=== PATIENT | male | born 1950 | race Caucasian/White ===

== ENCOUNTER 2017-10-29 09:28 | Emergency (ER) | payer MEDICARE, OTHER ==
[2017-10-29] MEDS ORDERED: Lidocaine 1% w/Epinephrine 1:100K 20 ML VIAL ONE (09:56)
[2017-10-29] MEDS ORDERED: Oxymetazoline HCl 0.05% ( 15 ML ) ONE (09:56)
[2017-10-29 10:27] LABS: #Basophils 0.1 thou/uL (0.0-0.2); #Eosinphils 0.1 thou/uL (0.0-0.7); #Lymphocytes 1.4 thou/uL (1.20-3.40); #Neutrophils 5.2 thou/uL (1.40-6.50); %Eosinophils 1.2 % (0.0-10.0); %Lymphocytes 18.3 % (21.0-51.0); %Monocytes 12.3 % (0.0-10.0); %Neutrophils 67.1 % (42.0-75.0); Hemoglobin 14.4 g/dL (14.0-18.0); Mean Corpuscular HGB CONC 34.1 g/dL (32.0-36.0); Mean Corpuscular Hemoglobin 31.3 pg (27.0-31.0); Mean Corpuscular Volume 91.7 fl (80.0-94.0); Mean Platelet Volume 6.3 fL (7.4-10.4); Platelet Count 239 thou/uL (130-400); RBC Distribution Width 11.9 % (11.5-14.5); White Blood Cell (WBC) Count 7.7 thou/uL (4.8-10.8)
[2017-10-29 10:32] LABS: INR-International Normal Ratio 1.2; PTT 32.7 SEC (22.9-36.1); Prothrombin Time 14.9 SEC (12.0-14.7)
[2017-10-29 10:47] LABS: ALT (SGPT) 41 U/L (8-55); AST (SGOT) 36 U/L (5-34); Albumin 4.3 g/dL (3.4-4.8); Alkaline Phosphatase 105 U/L (40-150); Anion Gap 16 mmol/L (10-20); BUN (Urea Nitrogen) 16 mg/dL (8.4-25.7); Calc. Creatinine Clearance 0 mL/min (70-130); Calcium 9.2 mg/dL (7.8-10.44); Carbon Dioxide 22 mmol/L (23-31); Chloride 98 mmol/L (98-107); Estimated GFR-MDRD Greater than 90; Globulin 3.5 g/dL (2.4-3.5); Glucose 113 mg/dL (80-115); Potassium 4.1 mmol/L (3.5-5.1); Protein, Total 7.8 g/dL (5.8-8.1); Sodium 132 mmol/L (136-145)
== END 2017-10-29 12:18 | disposition home or self-care (01) ==
LOC: ERS 09:28
DX: R04.0 Epistaxis (principal); E78.5 Hyperlipidemia, unspecified; I10 Essential (primary) hypertension; Z87.891 Personal history of nicotine dependence
CPT/HCPCS: 30901; 36415; 80053; 85025; 85610; 85730; 93005; J2001

== ENCOUNTER 2017-11-12 10:26 | Day surgery (SDC) | payer MEDICARE, OTHER ==
[2017-11-11 12:18] VITALS: BMI 36.6
[2017-11-12] MEDS ORDERED: Oxymetazoline HCl 0.05% ( 15 ML ) ONE (11:02)
[2017-11-12] MEDS ORDERED: Fentanyl 100 MCG/2 ML VIAL ONE ×2 (11:36→13:06)
[2017-11-12] MEDS ORDERED: Lidocaine 1% w/Epinephrine 1:200K 30 ML VIAL ONE (11:41)
[2017-11-12] MEDS ORDERED: Sodium Chloride For Inhalation 0.9% 3 ML NEB ONE (13:11)
--- NOTE | 2017-11-12 15:14 | OP ---
PREOPERATIVE DIAGNOSES: Chronic sinusitis, right antrochoanal polyp. POSTOPERATIVE DIAGNOSES: Chronic sinusitis, right antrochoanal polyp. PROCEDURES PERFORMED: 1. Bilateral nasal endoscopy with maxillary antrostomy. 2. Bilateral nasal endoscopy with total ethmoidectomy. 3. Bilateral nasal endoscopy with sphenoidotomy. 4. Bilateral nasal endoscopy with frontal sinusotomy. 5. Right nasal endoscopy with removal of antrochoanal polyp. PROCEDURE IN DETAIL: After consent was obtained, the patient was identified, brought to the operatin g room, and placed on the operating room table in the supine position. Consent was obtained, notifyi ng the patient of the possibility of additional infections, bleeding, brain injury, and eye/orbital i njury. The patient was placed on the operating room table, and general endotracheal anesthesia and intravenous access was obtained. The patient was then positioned, prepped and draped for endoscopic sinus surgery. Nasal preparation included trimming nasal vestibular hairs and spraying in topical Af rin. We then placed Afrin topical solution on nasal pledgets and strategically located them intranas ally. The perinasal mucosa was injected with 1% lidocaine with 1:100,000 epinephrine in the submucop erichondrial plane of the septum, lateral nasal wall, and anterior to the uncinate. The patient was then prepped and draped in a sterile fashion and positioned for endoscopic sinus surgery. With the 0-degree endoscope, the patient underwent systematic nasal endoscopy. There were no suspici ous internasal masses or lesions identified. We then focused our attention to the osteomeatal comple x region under the middle turbinate. The paz bullosa was identified and entered with a sickle blade. The lateral aspect of the paz bullosa was meticulously resected while leaving the medial most aspect to form the new middle turbina te. Attention was made not to violate the mucosa. The straight biting punches and micro-debrider we re used to remove shrouds of mucosa and bony debris. The anterior face of the ethmoid bulla was entered and with the micro-debrider, dissection continued posteriorly to the ground lamella. The limits of dissection inc luded the insertion of the middle turbinate, medial orbital wall, and base of skull. We similarly id entified the frontal recess and removed shrouds of bone and debris in that region to obtain patency i nto the agger nasi region and frontal recess. We then entered the ground lamella and its anteroinfer ior aspect and proceeded posteriorly, opening the posterior ethmoid air-cell system. Again, the limi ts of dissection included the base of skull and medial orbital wall. The anterior face of the sphenoid was identified and entered in its extreme anteroinferior aspect. A sphenoid punch was then used to enlarge the sphenoidotomy and no injury to the optic nerve or corporate development intern al carotid artery occurred. The inferior turbinates were visualized under endoscopic visualization and outfractured with the elev ator. The inferolateral edge of the inferior turbinate was then cauterized along its length with the suction cautery without difficulty. The inferior turbinates were visualized with a 0-degree endoscope and outfractured with a [place] eleva tor. The inferior medial aspect was cauterized with the electrocautery. Hemostasis was obtained . After adequate airway was established, we turned our attention to the contralateral side and used a s imilar procedure. Again, a [place] elevator was used to outfracture inferior turbinates under endoscop ic visualization. With a suction cautery, the free inferior medial aspect was cauterized under direc t visualization along the length of the inferior turbinate. After local anesthesia was infiltrated into the submucoperichondrial plane, a standard [place] incisi on was made with a #15 blade down to the level of the septal cartilage. The caudal elevator was used to elevate the mucoperichondrium from the underlying cartilage. We then proceeded beyond the bony c artilaginous junction and elevated the bony periosteum as well. Great attention was paid to the spur to prevent rent formation in the septal flap. A transcartilaginous incision was then made, while pre serving an adequate dorsal and caudal cartilaginous strut for tip support. The deformed cartilage wa s removed and disarticulated from the bony cartilaginous junction and maxillary crest. This was plac ed in saline and would later be crushed and returned to the mucoperichondrial envelope. We then elev ated the contralateral periosteum from the bony cartilaginous region and removed the deformed portion s of the bone and bony spurs. The cartilage was then crushed and placed back into the mucoperichondr ial envelope and the mucosa was re-approximated with a quilting stitch composed of rapidly absorbent gut suture. The Nii incision was also closed with interrupted gut suture. At the completion of the case, Castaneda splints were placed and suture secured to the caudal septum. At this point, we then turned our attention to the contralateral side and proceeded with endoscopic s inus surgery. At the completion of the case, [place] keel splints were placed in the ethmoid cavities after the ethmoi dectomy. There were no complications. The patient tolerated the procedure well and was discharged t o the recovery room in stable condition prior to return to the [facility] complex care. Prescriptions for pain medication and antibiotics were provided. The patient received intramuscular Depo-Medrol during the case. The right maxillary sinus was addressed prior to maxillary antrostomy and a large intracranial polyp was transected at the ostia under endoscopic visualization and this was injected and removed intact, measuring approximately 4-5 inches. The patient was awakened, extubated, and taken to recovery room stable condition. The uncinate was then identified and the extent of the uncinate was appreciated by out-fracturing the uncinate with the ball-tip probe. We then used the sickle blade to disarticulate the uncinate from the lateral nasal wall. This was then removed with straight biting and upbiting punches with the rem aining shrouds of mucosa and bony septum removed with the micro-debrider. The natural os of the maxi llary sinus was then identified and enlarged with the maxillary punches and back biting forceps.
[2017-11-12] MEDS ORDERED: Glycopyrrolate 0.2 MG/ML 5 ML SYRINGE ONE (15:35)
[2017-11-12] MEDS ORDERED: Esmolol 100 MG/10 ML VIAL ONE (15:35)
[2017-11-12] MEDS ORDERED: Propofol 200 MG/20 ML VIAL ONE (15:35)
[2017-11-12] MEDS ORDERED: Ondansetron HCl/PF 4 MG/2 ML Vial ONE (15:35)
[2017-11-12] MEDS ORDERED: Lidocaine 1% PF 5 ML VIAL ONE (15:35)
== END 2017-11-12 16:05 | disposition home or self-care (01) ==
LOC: SDC 10:26
PROVIDERS: ATTEND Specialist
PROC: 099R8ZZ Drainage of Left Maxillary Sinus, Via Natural or Artificial Opening Endoscopic (ICD-10-PCS; principal; 2017-11-12)
PROC: 099Q8ZZ Drainage of Right Maxillary Sinus, Via Natural or Artificial Opening Endoscopic (ICD-10-PCS; 2017-11-12)
PROC: 09TV8ZZ Resection of Left Ethmoid Sinus, Via Natural or Artificial Opening Endoscopic (ICD-10-PCS; 2017-11-12)
PROC: 09TU8ZZ Resection of Right Ethmoid Sinus, Via Natural or Artificial Opening Endoscopic (ICD-10-PCS; 2017-11-12)
PROC: 09BT8ZZ Excision of Left Frontal Sinus, Via Natural or Artificial Opening Endoscopic (ICD-10-PCS; 2017-11-12)
PROC: 09BS8ZZ Excision of Right Frontal Sinus, Via Natural or Artificial Opening Endoscopic (ICD-10-PCS; 2017-11-12)
PROC: 09CX8ZZ Extirpation of Matter from Left Sphenoid Sinus, Via Natural or Artificial Opening Endoscopic (ICD-10-PCS; 2017-11-12)
PROC: 09CW8ZZ Extirpation of Matter from Right Sphenoid Sinus, Via Natural or Artificial Opening Endoscopic (ICD-10-PCS; 2017-11-12)
PROC: 09BQ8ZX Excision of Right Maxillary Sinus, Via Natural or Artificial Opening Endoscopic, Diagnostic (ICD-10-PCS; 2017-11-12)
DX: J30.89 Other allergic rhinitis (principal); I10 Essential (primary) hypertension; K21.9 Gastro-esophageal reflux disease without esophagitis; Z79.2 Long term (current) use of antibiotics; Z79.899 Other long term (current) drug therapy; Z98.890 Other specified postprocedural states; Z87.891 Personal history of nicotine dependence
CPT/HCPCS: 88304; 93005; 93010; 96374; J2001; J2405; J2704; J3010; J7620

== ENCOUNTER 2023-07-13 12:09 | Day surgery (SDC) | payer MEDICARE, OTHER ==
[2023-07-10 11:05] VITALS: BMI 35.2
[2023-07-13 13:23] LABS: #Basophils 0.1 thou/uL (0.0-0.2); #Eosinphils 0.2 thou/uL (0.0-0.7); #Neutrophils 5.8 thou/uL (1.40-6.50); %Basophils 0.7 % (0.0-1.0); %Eosinophils 2.6 % (0.0-10.0); %Lymphocytes 15.4 % (21.0-51.0); %Monocytes 11.5 % (0.0-10.0); %Neutrophils 69.6 % (42.0-75.0); Hematocrit 39.9 % (42.0-52.0); Hemoglobin 13.1 g/dL (14.0-18.0); Mean Corpuscular HGB CONC 32.8 g/dL (32.0-36.0); Mean Corpuscular Hemoglobin 30.3 pg (27.0-31.0); Mean Corpuscular Volume 92.1 fl (78.0-98.0); Mean Platelet Volume 9.6 fL (7.4-10.4); Platelet Count 280 10x3/uL (130-400); RBC Distribution Width 15.1 % (11.5-14.5); Red Blood Cell (RBC) Count 4.33 mill/uL (4.70-6.10); White Blood Cell (WBC) Count 8.3 10x3/uL (4.8-10.8)
[2023-07-13 13:40] LABS: INR-International Normal Ratio 1.6; PTT 36.9 sec (22.9-36.1); Prothrombin Time 19.3 sec (12.0-14.7)
[2023-07-13 13:48] LABS: Anion Gap 15 mmol/L (10-20); BUN (Urea Nitrogen) 16 mg/dL (8.4-25.7); Calc. Creatinine Clearance 114 mL/min (70-130); Calcium 10.1 mg/dL (7.8-10.44); Carbon Dioxide 29 mmol/L (23-31); Chloride 101 mmol/L (98-107); Estimated GFR 86; Glucose 89 mg/dL (83-110); Potassium 3.8 mmol/L (3.5-5.1); Sodium 141 mmol/L (136-145)
[2023-07-13] MEDS ORDERED: PROPOFOL 200 MG/20 ML VIAL ONE (14:56)
== END 2023-07-13 16:05 | disposition home or self-care (01) ==
LOC: SDC 12:09
PROVIDERS: ATTEND Internal Medicine Cardiovascular Disease
PROC: 5A2204Z Restoration of Cardiac Rhythm, Single (ICD-10-PCS; principal; 2023-07-13)
PROC: B245ZZ4 Ultrasonography of Left Heart, Transesophageal (ICD-10-PCS; 2023-07-13)
DX: I48.0 Paroxysmal atrial fibrillation (principal); Z96.653 Presence of artificial knee joint, bilateral
CPT/HCPCS: 80048; 85025; 85610; 85730; 92960; 93005; 93010; 93312; J2704

== ENCOUNTER 2024-05-21 11:38 | Inpatient (IN) | payer MEDICARE, OTHER ==
[2024-05-21 11:59] LABS: #Basophils 0.04 10x3/uL (0.0-0.2); %Basophils 0.6 % (0.0-1.0); %Eosinophils 1.9 % (0.0-10.0); %Lymphocytes 16.7 % (21.0-51.0); %Monocytes 15.4 % (0.0-10.0); Hematocrit 32.5 % (42.0-52.0); Hemoglobin 11.2 g/dL (14.0-18.0); Mean Corpuscular HGB CONC 34.5 g/dL (32.0-36.0); Mean Corpuscular Hemoglobin 28.9 pg (27.0-31.0); Mean Platelet Volume 8.7 fL (7.4-10.4); Platelet Count 235 10x3/uL (130-400); RBC Distribution Width 13.9 % (11.5-14.5); Red Blood Cell (RBC) Count 3.87 mill/uL (4.70-6.10)
[2024-05-21 12:15] LABS: ALT (SGPT) 20 U/L (8-55); AST (SGOT) 24 U/L (5-34); Albumin 3.7 g/dL (3.4-4.8); Alkaline Phosphatase 98 U/L (40-110); Anion Gap 15 mmol/L (10-20); BUN (Urea Nitrogen) 13 mg/dL (8.4-25.7); Bilirubin, Total 1.1 mg/dL (0.2-1.2); Calc. Creatinine Clearance 0 mL/min (70-130); Calcium 9.1 mg/dL (7.8-10.44); Carbon Dioxide 24 mmol/L (23-31); Chloride 94 mmol/L (98-107); Estimated GFR 93; Globulin 3.8 g/dL (2.4-3.5); Glucose 97 mg/dL (83-110); Potassium 3.9 mmol/L (3.5-5.1); Protein, Total 7.5 g/dL (5.8-8.1); Sodium 129 mmol/L (136-145)
[2024-05-21 12:20] LABS: Troponin I 0.026 ng/mL (< 0.028)
[2024-05-21] MEDS ORDERED: niCARdipine 25 MG/10 ML SDV ONE (12:22)
[2024-05-21 12:36] LABS: INR-International Normal Ratio 1.3; Prothrombin Time 15.8 sec (12.0-14.7)
[2024-05-21 12:37] LABS: PTT 35.8 sec (22.9-36.1)
[2024-05-21] MEDS ORDERED: [UNRECOGNIZED DRUG - OTHER] IV SCH (12:45)
[2024-05-21] MEDS ORDERED: PROTHROMBIN COMPLEX CONCENTRATE IV SCH (12:45)
[2024-05-21] MEDS ORDERED: niCARdipine 40MG In NaCl 40 MG/200 ML BAG IVPB SCH (14:00)
[2024-05-21 15:00] VITALS: BMI 35.9
[2024-05-21] MEDS: niCARdipine 25 MG in Sodium Chloride 0.9% 250 ML 250 ML IVPB SCH (16:51)
[2024-05-21] MEDS: Promethazine HCl 25 MG in Sodium Chloride 0.9% 50 ML IVPB PRN (19:43)
[2024-05-21] MEDS: Famotidine 20 MG TAB PO SCH (21:16)
[2024-05-21] MEDS: Sacubitril 49 MG/Valsartan 51 MG TABLET PO SCH (21:16)
[2024-05-21] MEDS: Acetaminophen 325 MG TAB PO PRN (21:17)
[2024-05-22] MEDS ORDERED: Lorazepam 1 MG TAB PO PRN
[2024-05-22 04:05] LABS: #Basophils 0.03 10x3/uL (0.0-0.2); %Basophils 0.4 % (0.0-1.0); %Eosinophils 0.5 % (0.0-10.0); %Lymphocytes 12.8 % (21.0-51.0); %Monocytes 15.2 % (0.0-10.0); %Neutrophils 70.8 % (42.0-75.0); Hematocrit 32.1 % (42.0-52.0); Mean Corpuscular HGB CONC 34.3 g/dL (32.0-36.0); Mean Corpuscular Hemoglobin 28.2 pg (27.0-31.0); Mean Corpuscular Volume 82.3 fL (78.0-98.0); Mean Platelet Volume 8.7 fL (7.4-10.4); Platelet Count 250 10x3/uL (130-400); RBC Distribution Width 14.1 % (11.5-14.5)
[2024-05-22 04:23] LABS: Anion Gap 13 mmol/L (10-20); BUN (Urea Nitrogen) 9 mg/dL (8.4-25.7); Calc. Creatinine Clearance 141 mL/min (70-130); Calcium 9.1 mg/dL (7.8-10.44); Carbon Dioxide 26 mmol/L (23-31); Chloride 94 mmol/L (98-107); Estimated GFR 93; Glucose 101 mg/dL (83-110); Potassium 3.3 mmol/L (3.5-5.1); Sodium 130 mmol/L (136-145)
[2024-05-22] MEDS ORDERED: Non-Formulary Item 1 EACH (Cyanocobalamin (Vitamin B-12) [Vitamin B12] 2,500 MCG Tab.Chew PO SCH (09:00)
[2024-05-22] MEDS ORDERED: Non-Formulary Item 1 EACH (Sacubitril/Valsartan [Entresto 97 Mg-103 Mg Tablet] 1 EACH Tab PO SCH (09:00)
[2024-05-22] MEDS ORDERED: VIT B PO SCH (09:00)
[2024-05-22] MEDS ORDERED: Non-Formulary Item 1 EACH (Omeprazole [Omeprazole] 20 MG Tablet.Dr) PO SCH (09:00)
[2024-05-22] MEDS ORDERED: Non-Formulary Item 1 EACH (Multivitamin [Multi-Vitamin Daily] 1 TABLET Tablet) PO SCH (09:00)
[2024-05-22] MEDS: Rosuvastatin 10 MG TAB PO SCH (09:25)
[2024-05-22] MEDS: Amiodarone 200 MG TAB PO SCH (09:30)
[2024-05-22] MEDS: Folic Acid 1 MG TAB PO SCH (09:30)
[2024-05-22] MEDS: Thiamine 100 MG TAB PO SCH (09:30)
[2024-05-22] MEDS: hydrALAZINE 20 MG/ML VIAL SLOW IVP PRN (11:43)
[2024-05-22] MEDS: traMADol HCl 50 MG TAB PO PRN ×2 (14:15→17:26)
[2024-05-22] MEDS: Amlodipine 10 MG TAB PO SCH (14:54)
[2024-05-22] MEDS: Nitroglycerin 50 MG/250 ML BOT 250 ML IVPB SCH (18:15)
[2024-05-22] MEDS: Nitroglycerin 50 MG/250 ML BOT 250 ML ONE (18:15)
[2024-05-22] MEDS: levETIRAcetam 500 MG (5 mL) VIAL SLOW IVP SCH (18:25)
[2024-05-22] MEDS: Lorazepam 2 MG/ML VIAL ONE (18:25)
[2024-05-22] MEDS: Lorazepam 2 MG/ML VIAL SLOW IVP SCH (18:25)
[2024-05-22] MEDS: Sacubitril 49 MG/Valsartan 51 MG TABLET PO SCH (19:54)
[2024-05-22] MEDS: hydrALAZINE 25 MG TAB PO SCH (19:55)
[2024-05-22] MEDS ORDERED: Lorazepam 2 MG/ML VIAL IM PRN (20:30)
[2024-05-23] MEDS: Lorazepam 2 MG/ML VIAL SLOW IVP SCH (00:55)
[2024-05-23] MEDS: Dexmedetomidine In 0.9 % NaCl 100 ML IVPB SCH (00:55)
[2024-05-23 04:07] LABS: #Basophils 0.04 10x3/uL (0.0-0.2); %Basophils 0.4 % (0.0-1.0); %Eosinophils 0.4 % (0.0-10.0); %Lymphocytes 7.7 % (21.0-51.0); %Monocytes 14.7 % (0.0-10.0); %Neutrophils 76.5 % (42.0-75.0); Hemoglobin 10.5 g/dL (14.0-18.0); Mean Corpuscular Hemoglobin 28.6 pg (27.0-31.0); Mean Corpuscular Volume 81.7 fL (78.0-98.0); Mean Platelet Volume 9.2 fL (7.4-10.4); Platelet Count 236 10x3/uL (130-400); Red Blood Cell (RBC) Count 3.67 mill/uL (4.70-6.10)
[2024-05-23 04:38] LABS: ALT (SGPT) 16 U/L (8-55); AST (SGOT) 20 U/L (5-34); Albumin 3.4 g/dL (3.4-4.8); Alkaline Phosphatase 92 U/L (40-110); Anion Gap 13 mmol/L (10-20); BUN (Urea Nitrogen) 16 mg/dL (8.4-25.7); Bilirubin, Total 1.3 mg/dL (0.2-1.2); Calc. Creatinine Clearance 129 mL/min (70-130); Calcium 9.1 mg/dL (7.8-10.44); Carbon Dioxide 26 mmol/L (23-31); Chloride 92 mmol/L (98-107); Estimated GFR 91; Globulin 3.3 g/dL (2.4-3.5); Glucose 115 mg/dL (83-110); Potassium 3.3 mmol/L (3.5-5.1); Protein, Total 6.7 g/dL (5.8-8.1); Sodium 128 mmol/L (136-145)
[2024-05-23] MEDS ORDERED: Electrolyte Replacement Protocol FS PRN (08:30)
[2024-05-23] MEDS ORDERED: Potassium Chloride 20 MEQ TAB PO SCH (08:30)
[2024-05-23] MEDS: Potassium Chloride 20 MEQ in Premix 1 BAG IVPB SCH ×2 (08:39→22:17)
[2024-05-23] MEDS: Fosphenytoin Sodium 100 MG in Sodium Chloride 0.9% 50 ML IVPB SCH (08:39)
[2024-05-23] MEDS: levETIRAcetam 500 MG (5 mL) VIAL SLOW IVP SCH ×4 (08:39→20:26)
[2024-05-23] MEDS: Amlodipine 10 MG TAB PO SCH (10:02)
[2024-05-23] MEDS: pyridOXINE 50 MG (B6) TAB PO SCH (10:09)
[2024-05-23] MEDS: Cyanocobalamin (Vitamin B-12) 1,000 MCG TAB PO SCH (10:09)
[2024-05-23] MEDS: Multivit, Therapeutic 1 TAB PO SCH (10:09)
[2024-05-23] MEDS: Pantoprazole DR 40 MG TAB PO SCH (10:20)
[2024-05-23 11:54] LABS: Dilantin 8.4 ug/mL (10.0-20.0)
[2024-05-23] MEDS: Sodium Chloride 0.9% 1,000 ML IV SCH (12:33)
[2024-05-23] MEDS: hydrALAZINE 25 MG TAB PO PRN (16:03)
[2024-05-23] MEDS: Labetalol HCl 100 MG/20 ML VIAL ONE (16:58)
[2024-05-23] MEDS: Labetalol HCl 100 MG/20 ML VIAL SLOW IVP SCH (16:58)
[2024-05-23 17:01] LABS: Potassium 3.6 mmol/L (3.5-5.1)
[2024-05-23 18:50] LABS: Anion Gap 14 mmol/L (10-20); BUN (Urea Nitrogen) 13 mg/dL (8.4-25.7); Calc. Creatinine Clearance 139 mL/min (70-130); Carbon Dioxide 25 mmol/L (23-31); Chloride 94 mmol/L (98-107); Estimated GFR 93; Glucose 132 mg/dL (83-110); Potassium 3.4 mmol/L (3.5-5.1); Sodium 130 mmol/L (136-145)
[2024-05-23] MEDS: Rosuvastatin 20 MG TAB PO SCH (20:25)
[2024-05-24] MEDS: Lorazepam 1 MG TAB PO PRN (01:33)
[2024-05-24 04:03] LABS: #Basophils 0.05 10x3/uL (0.0-0.2); %Basophils 0.4 % (0.0-1.0); %Eosinophils 0.8 % (0.0-10.0); %Lymphocytes 10.1 % (21.0-51.0); %Monocytes 15.8 % (0.0-10.0); %Neutrophils 72.6 % (42.0-75.0); Hematocrit 33.6 % (42.0-52.0); Hemoglobin 11.3 g/dL (14.0-18.0); Mean Corpuscular HGB CONC 33.6 g/dL (32.0-36.0); Mean Corpuscular Hemoglobin 28.5 pg (27.0-31.0); Mean Corpuscular Volume 84.8 fL (78.0-98.0); Platelet Count 281 10x3/uL (130-400); RBC Distribution Width 14.4 % (11.5-14.5); Red Blood Cell (RBC) Count 3.96 mill/uL (4.70-6.10)
[2024-05-24 04:25] LABS: Anion Gap 15 mmol/L (10-20); BUN (Urea Nitrogen) 15 mg/dL (8.4-25.7); Calc. Creatinine Clearance 130 mL/min (70-130); Calcium 9.2 mg/dL (7.8-10.44); Carbon Dioxide 25 mmol/L (23-31); Chloride 95 mmol/L (98-107); Estimated GFR 91; Glucose 115 mg/dL (83-110); Potassium 3.4 mmol/L (3.5-5.1); Sodium 132 mmol/L (136-145)
[2024-05-24] MEDS: Potassium Chloride 20 MEQ in Premix 1 BAG IVPB SCH (08:31)
[2024-05-24] MEDS: Labetalol HCl 100 MG/20 ML VIAL SLOW IVP PRN (13:18)
[2024-05-24 14:49] LABS: Potassium 3.7 mmol/L (3.5-5.1)
[2024-05-24] MEDS: hydrALAZINE 25 MG TAB PO SCH (20:34)
[2024-05-25] MEDS: Lorazepam 1 MG TAB PO PRN (00:34)
[2024-05-25] MEDS ORDERED: Lorazepam 0.5 MG TAB PO PRN (06:00)
[2024-05-25] MEDS: niCARdipine 25 MG in Sodium Chloride 0.9% 250 ML 250 ML IVPB SCH (07:26)
[2024-05-25] MEDS: Ondansetron PF 4 MG/2 ML Vial IVP PRN (08:17)
[2024-05-25] MEDS ORDERED: Ibuprofen 600 MG TAB PO PRN (08:34)
[2024-05-25] MEDS: Ibuprofen 200 MG TAB PO PRN (09:12)
[2024-05-25] MEDS: levETIRAcetam 500 MG TAB PO SCH (19:32)
[2024-05-25] MEDS: Bisacodyl 5 MG TAB PO PRN (19:47)
[2024-05-26] MEDS: Fioricet 325/50/40 mg Tablet PO PRN (04:01)
[2024-05-26 04:38] LABS: #Basophils 0.03 10x3/uL (0.0-0.2); #Eosinophils Less than 0.03 10x3/uL (0.0-0.7); %Basophils 0.3 % (0.0-1.0); %Eosinophils 0.1 % (0.0-10.0); %Lymphocytes 7.5 % (21.0-51.0); %Monocytes 15.5 % (0.0-10.0); Hematocrit 32.5 % (42.0-52.0); Hemoglobin 10.9 g/dL (14.0-18.0); Mean Corpuscular HGB CONC 33.5 g/dL (32.0-36.0); Mean Corpuscular Hemoglobin 28.8 pg (27.0-31.0); Mean Corpuscular Volume 85.8 fL (78.0-98.0); Mean Platelet Volume 9.2 fL (7.4-10.4); Platelet Count 275 10x3/uL (130-400); RBC Distribution Width 14.6 % (11.5-14.5); Red Blood Cell (RBC) Count 3.79 mill/uL (4.70-6.10)
[2024-05-26 04:54] LABS: Anion Gap 13 mmol/L (10-20); BUN (Urea Nitrogen) 22 mg/dL (8.4-25.7); Calc. Creatinine Clearance 110 mL/min (70-130); Calcium 9.2 mg/dL (7.8-10.44); Carbon Dioxide 28 mmol/L (23-31); Chloride 94 mmol/L (98-107); Estimated GFR 82; Glucose 117 mg/dL (83-110); Potassium 2.9 mmol/L (3.5-5.1); Sodium 132 mmol/L (136-145)
[2024-05-26] MEDS: Potassium Chloride 20 MEQ TAB PO SCH (05:50)
[2024-05-26 14:10] LABS: Potassium 3.6 mmol/L (3.5-5.1)
[2024-05-27 03:33] LABS: #Basophils 0.04 10x3/uL (0.0-0.2); #Eosinophils Less than 0.03 10x3/uL (0.0-0.7); %Basophils 0.4 % (0.0-1.0); %Eosinophils 0.2 % (0.0-10.0); %Lymphocytes 8.5 % (21.0-51.0); %Monocytes 15.7 % (0.0-10.0); Hematocrit 32.5 % (42.0-52.0); Hemoglobin 11.2 g/dL (14.0-18.0); Mean Corpuscular HGB CONC 34.5 g/dL (32.0-36.0); Mean Corpuscular Hemoglobin 28.4 pg (27.0-31.0); Mean Corpuscular Volume 82.3 fL (78.0-98.0); Mean Platelet Volume 8.8 fL (7.4-10.4); Platelet Count 251 10x3/uL (130-400); RBC Distribution Width 14.4 % (11.5-14.5); Red Blood Cell (RBC) Count 3.95 mill/uL (4.70-6.10)
[2024-05-27 03:58] LABS: Anion Gap 13 mmol/L (10-20); BUN (Urea Nitrogen) 28 mg/dL (8.4-25.7); Calc. Creatinine Clearance 122 mL/min (70-130); Calcium 9.3 mg/dL (7.8-10.44); Carbon Dioxide 27 mmol/L (23-31); Chloride 98 mmol/L (98-107); Estimated GFR 90; Glucose 121 mg/dL (83-110); Potassium 3.2 mmol/L (3.5-5.1); Sodium 135 mmol/L (136-145)
[2024-05-27] MEDS: Potassium Chloride 20 MEQ TAB PO SCH (07:50)
[2024-05-27 10:03] VITALS: BMI 35.0
[2024-05-27] MEDS: NIFEdipine XL 60 MG ER.TAB PO SCH ×2 (10:23→20:25)
[2024-05-27] MEDS: hydrALAZINE 25 MG TAB PO SCH (10:24)
[2024-05-27] MEDS ORDERED: Polyethylene Glycol 3350 17 GM Packet PO PRN (10:54)
[2024-05-28 04:21] LABS: #Basophils Less than 0.03 10x3/uL (0.0-0.2); #Eosinophils Less than 0.03 10x3/uL (0.0-0.7); %Basophils 0.2 % (0.0-1.0); %Eosinophils 0.1 % (0.0-10.0); %Lymphocytes 7.3 % (21.0-51.0); %Monocytes 16.6 % (0.0-10.0); %Neutrophils 75.5 % (42.0-75.0); Hematocrit 31.9 % (42.0-52.0); Hemoglobin 11.1 g/dL (14.0-18.0); Mean Corpuscular HGB CONC 34.8 g/dL (32.0-36.0); Mean Corpuscular Hemoglobin 28.4 pg (27.0-31.0); Mean Corpuscular Volume 81.6 fL (78.0-98.0); Mean Platelet Volume 9.4 fL (7.4-10.4); Platelet Count 258 10x3/uL (130-400); RBC Distribution Width 14.6 % (11.5-14.5); Red Blood Cell (RBC) Count 3.91 mill/uL (4.70-6.10)
[2024-05-28 04:50] LABS: Anion Gap 14 mmol/L (10-20); BUN (Urea Nitrogen) 24 mg/dL (8.4-25.7); Calc. Creatinine Clearance 129 mL/min (70-130); Calcium 9.5 mg/dL (7.8-10.44); Carbon Dioxide 26 mmol/L (23-31); Chloride 95 mmol/L (98-107); Estimated GFR 92; Glucose 119 mg/dL (83-110); Potassium 2.9 mmol/L (3.5-5.1); Sodium 132 mmol/L (136-145)
[2024-05-28] MEDS: Potassium Chloride 20 MEQ TAB PO SCH (06:04)
[2024-05-28 08:08] LABS: Magnesium 1.7 mg/dL (1.6-2.6)
[2024-05-28] MEDS ORDERED: NIFEdipine XL 60 MG ER.TAB PO SCH (09:00)
[2024-05-28] MEDS: hydrALAZINE 25 MG TAB PO SCH ×2 (10:03→18:03)
[2024-05-28] MEDS: Magnesium 2 GM/50 ML(in water) 2 GM in Premix 1 BAG IVPB SCH (10:14)
[2024-05-29 03:57] LABS: #Basophils Less than 0.03 10x3/uL (0.0-0.2); #Eosinophils Less than 0.03 10x3/uL (0.0-0.7); %Basophils 0.2 % (0.0-1.0); %Eosinophils 0.1 % (0.0-10.0); %Lymphocytes 8.5 % (21.0-51.0); %Monocytes 17.1 % (0.0-10.0); %Neutrophils 73.6 % (42.0-75.0); Hematocrit 34.3 % (42.0-52.0); Hemoglobin 11.5 g/dL (14.0-18.0); Mean Corpuscular HGB CONC 33.5 g/dL (32.0-36.0); Mean Corpuscular Hemoglobin 28.4 pg (27.0-31.0); Mean Corpuscular Volume 84.7 fL (78.0-98.0); Mean Platelet Volume 8.9 fL (7.4-10.4); Platelet Count 249 10x3/uL (130-400); RBC Distribution Width 14.5 % (11.5-14.5); Red Blood Cell (RBC) Count 4.05 mill/uL (4.70-6.10)
[2024-05-29 04:33] LABS: Anion Gap 15 mmol/L (10-20); BUN (Urea Nitrogen) 27 mg/dL (8.4-25.7); Calc. Creatinine Clearance 122 mL/min (70-130); Calcium 9.3 mg/dL (7.8-10.44); Carbon Dioxide 25 mmol/L (23-31); Chloride 93 mmol/L (98-107); Estimated GFR 90; Glucose 119 mg/dL (83-110); Magnesium 1.8 mg/dL (1.6-2.6); Sodium 130 mmol/L (136-145)
[2024-05-29] MEDS: traMADol HCl 50 MG TAB PO SCH (05:37)
[2024-05-29] MEDS: Melatonin 3 MG TAB PO SCH (05:37)
[2024-05-29] MEDS ORDERED: Lactulose 20 GM (30 mL) UDCUP PO PRN (09:20)
[2024-05-29] MEDS: Lactulose 20 GM (30 mL) UDCUP PO SCH (10:42)
[2024-05-29] MEDS: Potassium Chloride 20 MEQ TAB PO SCH (10:45)
[2024-05-29] MEDS: Magnesium 2 GM/50 ML(in water) 2 GM in Premix 1 BAG IVPB SCH (10:47)
[2024-05-30 06:47] LABS: #Basophils 0.04 10x3/uL (0.0-0.2); %Basophils 0.4 % (0.0-1.0); %Eosinophils 0.3 % (0.0-10.0); %Lymphocytes 10.4 % (21.0-51.0); %Monocytes 17.3 % (0.0-10.0); %Neutrophils 71.2 % (42.0-75.0); Hematocrit 33.9 % (42.0-52.0); Hemoglobin 11.6 g/dL (14.0-18.0); Mean Corpuscular HGB CONC 34.2 g/dL (32.0-36.0); Mean Corpuscular Hemoglobin 28.4 pg (27.0-31.0); Mean Corpuscular Volume 82.9 fL (78.0-98.0); Mean Platelet Volume 9.5 fL (7.4-10.4); Platelet Count 282 10x3/uL (130-400); RBC Distribution Width 14.6 % (11.5-14.5); Red Blood Cell (RBC) Count 4.09 mill/uL (4.70-6.10)
[2024-05-30 07:20] LABS: Anion Gap 15 mmol/L (10-20); BUN (Urea Nitrogen) 27 mg/dL (8.4-25.7); Calc. Creatinine Clearance 129 mL/min (70-130); Calcium 9.2 mg/dL (7.8-10.44); Carbon Dioxide 27 mmol/L (23-31); Chloride 93 mmol/L (98-107); Estimated GFR 91; Glucose 105 mg/dL (83-110); Potassium 2.8 mmol/L (3.5-5.1); Sodium 132 mmol/L (136-145)
[2024-05-30] MEDS: Magnesium 2 GM/50 ML(in water) 2 GM in Premix 1 BAG IVPB SCH (09:03)
[2024-05-30] MEDS: Potassium Chloride 20 MEQ in Premix 1 BAG IVPB SCH (09:04)
[2024-05-30] MEDS: Potassium Chloride 20 MEQ TAB PO SCH (09:06)
[2024-05-30 15:16] LABS: Potassium 3.7 mmol/L (3.5-5.1)
[2024-05-30 16:32] VITALS: TEMP 98.1
[2024-05-30 17:53] VITALS: BP 126/70
== END 2024-05-30 19:50 | disposition swing bed (61) | DRG 65 ==
LOC: ERS 11:38 → CCU 13:05 → 2SE 05-26 17:50
PROVIDERS: ADMIT Internal Medicine; ATTEND Family Medicine
PROC: 4A00X4Z Measurement of Central Nervous Electrical Activity, External Approach (ICD-10-PCS; principal; 2024-05-23)
DX: I61.8 Other nontraumatic intracerebral hemorrhage (principal); E22.2 Syndrome of inappropriate secretion of antidiuretic hormone; I16.1 Hypertensive emergency; I48.0 Paroxysmal atrial fibrillation; E87.6 Hypokalemia; E78.5 Hyperlipidemia, unspecified; F10.10 Alcohol abuse, uncomplicated; E03.9 Hypothyroidism, unspecified; Z96.653 Presence of artificial knee joint, bilateral; I12.9 Hypertensive chronic kidney disease with stage 1 through stage 4 chronic kidney disease, or unspecified chronic kidney disease; N18.1 Chronic kidney disease, stage 1; D64.9 Anemia, unspecified; J44.9 Chronic obstructive pulmonary disease, unspecified; K21.9 Gastro-esophageal reflux disease without esophagitis; E66.01 Morbid (severe) obesity due to excess calories; Z79.899 Other long term (current) drug therapy; Z79.01 Long term (current) use of anticoagulants; Z71.41 Alcohol abuse counseling and surveillance of alcoholic; Z68.35 Body mass index [BMI] 35.0-35.9, adult; R53.81 Other malaise; G40.909 Epilepsy, unspecified, not intractable, without status epilepticus; Z87.891 Personal history of nicotine dependence; Z79.82 Long term (current) use of aspirin; Z00.00 Encounter for general adult medical examination without abnormal findings; Z13.1 Encounter for screening for diabetes mellitus
CPT/HCPCS: 36415; 36416; 70450; 80048; 80053; 80061; 80185; 83540; 83550; 83735; 83930; 83935; 84300; 84484; 85025; 85610; 85730; 93005; 95813; J0360; J1953; J2060; J2405; J2550; J3475; J3480; J7050; J7168; Q2009

== ENCOUNTER 2024-05-31 13:32 | Inpatient (IN) | payer MEDICARE, OTHER ==
[2024-05-31] MEDS ORDERED: hydrALAZINE 25 MG TAB ONE (17:28)
[2024-05-31] MEDS ORDERED: Ondansetron ODT 4 MG TAB PO PRN (18:30)
[2024-05-31] MEDS ORDERED: Ondansetron PF 4 MG/2 ML Vial IVP PRN (18:30)
[2024-05-31] MEDS ORDERED: Acetaminophen 650 MG Suppository PR PRN (18:30)
[2024-05-31] MEDS: Lidocaine 4% Patch TD SCH (19:20)
[2024-05-31] MEDS: Acetaminophen 325 MG TAB PO PRN (19:20)
[2024-05-31 19:25] LABS: #Basophils 0.04 10x3/uL (0.0-0.2); %Basophils 0.4 % (0.0-1.0); %Eosinophils 0.9 % (0.0-10.0); %Lymphocytes 10.4 % (21.0-51.0); %Monocytes 14.3 % (0.0-10.0); %Neutrophils 73.6 % (42.0-75.0); Hematocrit 35.2 % (42.0-52.0); Hemoglobin 11.9 g/dL (14.0-18.0); Mean Corpuscular HGB CONC 33.8 g/dL (32.0-36.0); Mean Corpuscular Hemoglobin 28.5 pg (27.0-31.0); Mean Corpuscular Volume 84.4 fL (78.0-98.0); Mean Platelet Volume 8.6 fL (7.4-10.4); Platelet Count 276 10x3/uL (130-400); RBC Distribution Width 14.1 % (11.5-14.5); Red Blood Cell (RBC) Count 4.17 mill/uL (4.70-6.10)
[2024-05-31 20:12] VITALS: BMI 34.2
[2024-05-31] MEDS: HYDROcodone/Acetaminophen 5/325 mg Tablet PO PRN (21:40)
[2024-05-31] MEDS: levETIRAcetam 500 MG TAB PO SCH (21:40)
[2024-05-31] MEDS: NIFEdipine XL 60 MG ER.TAB PO SCH (21:41)
[2024-05-31] MEDS: Rosuvastatin 20 MG TAB PO SCH (21:41)
[2024-05-31] MEDS: Sacubitril 49 MG/Valsartan 51 MG TABLET PO SCH (21:42)
[2024-05-31] MEDS ORDERED: Morphine 2 MG/ML VIAL SLOW IVP PRN ×2 (23:08→23:09)
[2024-05-31] MEDS: hydrALAZINE 25 MG TAB PO SCH (23:41)
[2024-06-01 04:05] LABS: Anion Gap 15 mmol/L (10-20); BUN (Urea Nitrogen) 20 mg/dL (8.4-25.7); Calc. Creatinine Clearance 146 mL/min (70-130); Calcium 8.9 mg/dL (7.8-10.44); Carbon Dioxide 25 mmol/L (23-31); Chloride 96 mmol/L (98-107); Estimated GFR 96; Glucose 103 mg/dL (83-110); Sodium 133 mmol/L (136-145)
[2024-06-01] MEDS: Potassium Chloride 20 MEQ TAB PO SCH (09:15)
[2024-06-01] MEDS: Pantoprazole DR 40 MG TAB PO SCH (09:18)
[2024-06-01] MEDS: Cyanocobalamin (Vitamin B-12) 1,000 MCG TAB PO SCH (09:19)
[2024-06-01] MEDS: Thiamine 100 MG TAB PO SCH (09:19)
[2024-06-01] MEDS: Folic Acid 1 MG TAB PO SCH (09:19)
[2024-06-01] MEDS: Transdermal Patch Removal TOP SCH (09:20)
[2024-06-01] MEDS: Amiodarone 200 MG TAB PO SCH (09:20)
[2024-06-01] MEDS ORDERED: Lorazepam 2 MG/ML VIAL SLOW IVP PRN (10:04)
[2024-06-01] MEDS: Diclofenac 1% 50 GM TOPICAL GEL TP SCH (16:19)
[2024-06-02] MEDS: Gabapentin 300 MG CAP PO SCH ×2 (11:42→22:49)
[2024-06-02] MEDS: Cyclobenzaprine 10 MG TAB PO SCH (11:46)
[2024-06-02] MEDS: Lorazepam 2 MG/ML VIAL SLOW IVP PRN (14:54)
[2024-06-03 04:36] LABS: #Basophils 0.07 10x3/uL (0.0-0.2); %Basophils 0.7 % (0.0-1.0); %Eosinophils 1.1 % (0.0-10.0); %Lymphocytes 11.6 % (21.0-51.0); %Monocytes 14.1 % (0.0-10.0); Hematocrit 32.9 % (42.0-52.0); Mean Corpuscular HGB CONC 33.4 g/dL (32.0-36.0); Mean Corpuscular Hemoglobin 28.3 pg (27.0-31.0); Mean Corpuscular Volume 84.6 fL (78.0-98.0); Platelet Count 271 10x3/uL (130-400); RBC Distribution Width 14.2 % (11.5-14.5); Red Blood Cell (RBC) Count 3.89 mill/uL (4.70-6.10)
[2024-06-03 04:45] LABS: Anion Gap 16 mmol/L (10-20); BUN (Urea Nitrogen) 24 mg/dL (8.4-25.7); Calc. Creatinine Clearance 96 mL/min (70-130); Carbon Dioxide 26 mmol/L (23-31); Chloride 92 mmol/L (98-107); Estimated GFR 72; Glucose 82 mg/dL (83-110); Potassium 3.1 mmol/L (3.5-5.1); Sodium 131 mmol/L (136-145)
[2024-06-03] MEDS: Potassium Chloride 20 MEQ in Premix 1 BAG IVPB SCH (08:46)
[2024-06-03] MEDS ORDERED: Lidocaine 1% PF 5 ML VIAL ONE (10:58)
[2024-06-03] MEDS ORDERED: fentaNYL PF 100 MCG/2 ML SYRINGE ONE (10:58)
[2024-06-03] MEDS ORDERED: PROPOFOL 20 ML ONE (10:58)
[2024-06-03] MEDS ORDERED: Rocuronium Bromide 10 MG/ML (10ML VIAL) ONE (10:58)
[2024-06-03] MEDS ORDERED: EPINEPHrine 1 MG/ML VIAL ONE (11:13)
[2024-06-03] MEDS ORDERED: Bupivacaine 0.25% HCL 30 ML VIAL ONE (11:14)
[2024-06-03] MEDS ORDERED: CEFAZOLIN 2 GM VIAL ONE (12:16)
[2024-06-03] MEDS ORDERED: Etomidate 40 MG (20 mL) VIAL ONE (12:20)
[2024-06-03] MEDS ORDERED: Lidocaine 1% (PF) 30 ML VIAL ONE (12:42)
[2024-06-03] MEDS ORDERED: ePHEDrine Sulfate 50 MG/10 ML VIAL ONE (12:47)
[2024-06-03] MEDS ORDERED: Vancomycin 1 GM VIAL ONE (13:04)
[2024-06-03] MEDS ORDERED: Dexamethasone 20 MG/5 ML VIAL ONE (13:19)
[2024-06-03] MEDS ORDERED: Ondansetron PF 4 MG/2 ML Vial ONE (13:19)
[2024-06-03] MEDS ORDERED: PHENYLEPHRINE-NS 100 MCG/ML 10 ML SYRINGE ONE (13:33)
[2024-06-03] MEDS ORDERED: MINERAL OIL/WHITE PETROLATUM 3.5 GM TUBE ONE (13:41)
[2024-06-03] MEDS ORDERED: SUGAMMADEX SODIUM 200 MG/2 ML VIAL ONE (13:44)
[2024-06-03] MEDS ORDERED: Ondansetron HCl/PF 4 MG/2 ML Vial IVP PRN (14:06)
[2024-06-03] MEDS ORDERED: Promethazine HCl 25 MG/ML VIAL IM PRN (14:06)
[2024-06-03] MEDS: Cyclobenzaprine 10 MG TAB PO PRN (17:09)
[2024-06-03] MEDS: CEFAZOLIN 2 GM in Sodium Chloride 0.9% 100 ML IVPB SCH (20:41)
[2024-06-04 04:06] LABS: #Basophils Less than 0.03 10x3/uL (0.0-0.2); #Eosinophils Less than 0.03 10x3/uL (0.0-0.7); %Basophils 0.1 % (0.0-1.0); %Lymphocytes 6.3 % (21.0-51.0); %Monocytes 9.3 % (0.0-10.0); Hematocrit 31.5 % (42.0-52.0); Hemoglobin 10.6 g/dL (14.0-18.0); Mean Corpuscular HGB CONC 33.7 g/dL (32.0-36.0); Mean Corpuscular Hemoglobin 28.3 pg (27.0-31.0); Mean Corpuscular Volume 84.2 fL (78.0-98.0); Platelet Count 244 10x3/uL (130-400); Red Blood Cell (RBC) Count 3.74 mill/uL (4.70-6.10)
[2024-06-04 04:23] LABS: Anion Gap 15 mmol/L (10-20); BUN (Urea Nitrogen) 38 mg/dL (8.4-25.7); Calc. Creatinine Clearance 79 mL/min (70-130); Calcium 8.6 mg/dL (7.8-10.44); Carbon Dioxide 21 mmol/L (23-31); Chloride 95 mmol/L (98-107); Estimated GFR 56; Glucose 187 mg/dL (83-110); Potassium 3.5 mmol/L (3.5-5.1); Sodium 127 mmol/L (136-145)
[2024-06-04] MEDS: Sodium Chloride 0.9% 1,000 ML IV SCH (09:24)
[2024-06-04] MEDS ORDERED: Sodium Chloride 256 MEQ in Sterile Water 936 ML IV SCH (12:45)
[2024-06-04] MEDS: STERILE WATER IV SCH (14:44)
[2024-06-04] MEDS: SODIUM CHLORIDE IV SCH (14:44)
[2024-06-04] MEDS: ADMIXTURE FEE IV SCH (14:44)
[2024-06-05 04:08] LABS: #Basophils 0.03 10x3/uL (0.0-0.2); %Basophils 0.2 % (0.0-1.0); %Eosinophils 0.4 % (0.0-10.0); %Lymphocytes 8.7 % (21.0-51.0); %Monocytes 13.7 % (0.0-10.0); %Neutrophils 76.5 % (42.0-75.0); Hematocrit 31.3 % (42.0-52.0); Hemoglobin 10.5 g/dL (14.0-18.0); Mean Corpuscular HGB CONC 33.5 g/dL (32.0-36.0); Mean Corpuscular Volume 83.5 fL (78.0-98.0); Mean Platelet Volume 9.1 fL (7.4-10.4); Platelet Count 226 10x3/uL (130-400); RBC Distribution Width 14.2 % (11.5-14.5); Red Blood Cell (RBC) Count 3.75 mill/uL (4.70-6.10)
[2024-06-05 04:37] LABS: Anion Gap 14 mmol/L (10-20); BUN (Urea Nitrogen) 28 mg/dL (8.4-25.7); Calc. Creatinine Clearance 124 mL/min (70-130); Calcium 7.9 mg/dL (7.8-10.44); Carbon Dioxide 18 mmol/L (23-31); Chloride 102 mmol/L (98-107); Estimated GFR 91; Glucose 106 mg/dL (83-110); Potassium 4.7 mmol/L (3.5-5.1); Sodium 129 mmol/L (136-145)
[2024-06-06 04:40] LABS: #Basophils 0.07 10x3/uL (0.0-0.2); %Basophils 0.7 % (0.0-1.0); %Eosinophils 1.4 % (0.0-10.0); %Lymphocytes 8.6 % (21.0-51.0); %Monocytes 13.5 % (0.0-10.0); %Neutrophils 75.4 % (42.0-75.0); Hemoglobin 10.5 g/dL (14.0-18.0); Mean Corpuscular HGB CONC 33.9 g/dL (32.0-36.0); Mean Corpuscular Hemoglobin 28.4 pg (27.0-31.0); Mean Corpuscular Volume 83.8 fL (78.0-98.0); Mean Platelet Volume 10.1 fL (7.4-10.4); Platelet Count 251 10x3/uL (130-400); RBC Distribution Width 14.5 % (11.5-14.5)
[2024-06-06 05:01] LABS: Anion Gap 13 mmol/L (10-20); BUN (Urea Nitrogen) 14 mg/dL (8.4-25.7); Calc. Creatinine Clearance 144 mL/min (70-130); Calcium 8.3 mg/dL (7.8-10.44); Carbon Dioxide 21 mmol/L (23-31); Chloride 104 mmol/L (98-107); Estimated GFR 95; Glucose 104 mg/dL (83-110); Potassium 3.4 mmol/L (3.5-5.1); Sodium 135 mmol/L (136-145)
[2024-06-06] MEDS ORDERED: Potassium Chloride 40 MEQ in Premix 1 BAG IVPB SCH (09:00)
[2024-06-06] MEDS: Potassium Chloride 20 MEQ in Premix 1 BAG IVPB SCH (09:32)
[2024-06-06 09:45] LABS: Magnesium 1.4 mg/dL (1.6-2.6); Phosphorus 2.2 mg/dL (2.3-4.7)
[2024-06-06] MEDS: Magnesium Sulfate In Water 4 GM in Premix 1 BAG IVPB SCH (13:48)
[2024-06-07 05:37] LABS: #Basophils 0.06 10x3/uL (0.0-0.2); %Basophils 0.7 % (0.0-1.0); %Eosinophils 3.1 % (0.0-10.0); %Lymphocytes 10.2 % (21.0-51.0); %Monocytes 15.3 % (0.0-10.0); %Neutrophils 70.3 % (42.0-75.0); Hematocrit 30.7 % (42.0-52.0); Hemoglobin 10.2 g/dL (14.0-18.0); Mean Corpuscular HGB CONC 33.2 g/dL (32.0-36.0); Mean Corpuscular Hemoglobin 28.7 pg (27.0-31.0); Mean Corpuscular Volume 86.2 fL (78.0-98.0); Mean Platelet Volume 9.2 fL (7.4-10.4); Platelet Count 245 10x3/uL (130-400); RBC Distribution Width 14.3 % (11.5-14.5); Red Blood Cell (RBC) Count 3.56 mill/uL (4.70-6.10)
[2024-06-07] MEDS ORDERED: Vancomycin HCl 20 MG, Gentamicin (PEDI) 8 MG, Admixture Fee 1 EACH in Sodium Chloride 0... FS SCH (06:00)
[2024-06-07 06:04] LABS: Anion Gap 10 mmol/L (10-20); BUN (Urea Nitrogen) 9 mg/dL (8.4-25.7); Calc. Creatinine Clearance 148 mL/min (70-130); Calcium 8.3 mg/dL (7.8-10.44); Carbon Dioxide 24 mmol/L (23-31); Chloride 101 mmol/L (98-107); Estimated GFR 96; Glucose 93 mg/dL (83-110); Magnesium 1.6 mg/dL (1.6-2.6); Potassium 3.1 mmol/L (3.5-5.1); Sodium 132 mmol/L (136-145)
[2024-06-07] MEDS ORDERED: Electrolyte Replacement Protocol 1 EACH FS SCH (08:45)
[2024-06-07] MEDS ORDERED: Senokot S 8.6-50 MG TAB PO PRN (08:51)
[2024-06-07] MEDS: Magnesium 2 GM/50 ML(in water) 2 GM in Premix 1 BAG IVPB SCH (08:55)
[2024-06-07] MEDS: Potassium Chloride 20 MEQ TAB PO SCH ×2 (08:59→14:24)
[2024-06-07] MEDS: Electrolyte Replacement Protocol 1 EACH FS ONE (09:01)
[2024-06-07] MEDS: Polyethylene Glycol 3350 17 GM Packet PO SCH (09:01)
[2024-06-07 13:08] LABS: Potassium 3.4 mmol/L (3.5-5.1)
[2024-06-08 04:44] LABS: #Basophils 0.05 10x3/uL (0.0-0.2); %Basophils 0.7 % (0.0-1.0); %Eosinophils 3.7 % (0.0-10.0); %Lymphocytes 8.7 % (21.0-51.0); %Monocytes 13.5 % (0.0-10.0); Hematocrit 30.4 % (42.0-52.0); Hemoglobin 10.5 g/dL (14.0-18.0); Mean Corpuscular HGB CONC 34.5 g/dL (32.0-36.0); Mean Corpuscular Hemoglobin 28.6 pg (27.0-31.0); Mean Corpuscular Volume 82.8 fL (78.0-98.0); Mean Platelet Volume 9.6 fL (7.4-10.4); Platelet Count 234 10x3/uL (130-400); RBC Distribution Width 14.4 % (11.5-14.5); Red Blood Cell (RBC) Count 3.67 mill/uL (4.70-6.10)
[2024-06-08 04:51] LABS: Anion Gap 11 mmol/L (10-20); BUN (Urea Nitrogen) 7 mg/dL (8.4-25.7); Calc. Creatinine Clearance 153 mL/min (70-130); Calcium 8.3 mg/dL (7.8-10.44); Carbon Dioxide 24 mmol/L (23-31); Chloride 100 mmol/L (98-107); Estimated GFR 97; Glucose 101 mg/dL (83-110); Magnesium 1.5 mg/dL (1.6-2.6); Potassium 3.4 mmol/L (3.5-5.1); Sodium 132 mmol/L (136-145)
[2024-06-08] MEDS ORDERED: Vancomycin HCl 20 MG, Gentamicin (PEDI) 8 MG, Admixture Fee 1 EACH in Sodium Chloride 0... FS SCH (06:00)
[2024-06-08] MEDS ORDERED: Bupivacaine 0.25% HCL 30 ML VIAL ONE (06:11)
[2024-06-08] MEDS ORDERED: Vancomycin 1 GM VIAL ONE (06:11)
[2024-06-08] MEDS ORDERED: EPINEPHrine 1 MG/ML VIAL ONE (06:11)
[2024-06-08] MEDS ORDERED: Bacitracin Zinc Ointment 30 gm TUBE ONE (06:12)
[2024-06-08] MEDS ORDERED: Lidocaine 1% (PF) 30 ML VIAL ONE (06:12)
[2024-06-08] MEDS ORDERED: Thrombin 5000 UNITS/5 ML VIAL ONE (06:12)
[2024-06-08] MEDS ORDERED: PROPOFOL 20 ML ONE (06:25)
[2024-06-08] MEDS ORDERED: fentaNYL PF 100 MCG/2 ML SYRINGE ONE ×2 (06:25→09:45)
[2024-06-08] MEDS ORDERED: ADMIXTURE FEE FS SCH (06:30)
[2024-06-08] MEDS ORDERED: GENTAMICIN FS SCH (06:30)
[2024-06-08] MEDS ORDERED: VANCOMYCIN HCL FS SCH (06:30)
[2024-06-08] MEDS ORDERED: [UNRECOGNIZED DRUG - OTHER] FS SCH (06:30)
[2024-06-08] MEDS ORDERED: Rocuronium Bromide 10 MG/ML (10ML VIAL) ONE (06:31)
[2024-06-08] MEDS ORDERED: Lidocaine 1% PF 5 ML VIAL ONE (06:31)
[2024-06-08] MEDS: Vancomycin 1 GM in Premix 1 BAG IVPB SCH ×2 (06:48→10:49)
[2024-06-08] MEDS ORDERED: Dexamethasone 20 MG/5 ML VIAL ONE (08:09)
[2024-06-08] MEDS ORDERED: Ondansetron PF 4 MG/2 ML Vial ONE (08:09)
[2024-06-08] MEDS ORDERED: ePHEDrine Sulfate 50 MG/10 ML VIAL ONE (08:21)
[2024-06-08] MEDS ORDERED: PHENYLEPHRINE-NS 100 MCG/ML 10 ML SYRINGE ONE (08:33)
[2024-06-08] MEDS ORDERED: SUGAMMADEX SODIUM 200 MG/2 ML VIAL ONE (09:03)
[2024-06-08] MEDS ORDERED: Ondansetron HCl/PF 4 MG/2 ML Vial IVP PRN (09:39)
[2024-06-08] MEDS ORDERED: Promethazine HCl 25 MG/ML VIAL IM PRN (09:39)
[2024-06-08] MEDS: Potassium Chloride 20 MEQ TAB PO SCH (10:42)
[2024-06-08] MEDS: VANCOMYCIN IVPB SCH (10:54)
[2024-06-08] MEDS: SODIUM CHLORIDE 0.9% IVPB SCH (10:54)
[2024-06-08] MEDS: Potassium Phosphate 15 MMOL in Sodium Chloride 0.9% 100 ML IVPB SCH (10:55)
[2024-06-08] MEDS: Magnesium 2 GM/50 ML(in water) 2 GM in Premix 1 BAG IVPB SCH (13:39)
[2024-06-09 06:00] LABS: #Basophils Less than 0.03 10x3/uL (0.0-0.2); #Eosinophils Less than 0.03 10x3/uL (0.0-0.7); %Basophils 0.1 % (0.0-1.0); %Lymphocytes 8.5 % (21.0-51.0); %Monocytes 10.9 % (0.0-10.0); Hematocrit 30.1 % (42.0-52.0); Hemoglobin 10.2 g/dL (14.0-18.0); Mean Corpuscular HGB CONC 33.9 g/dL (32.0-36.0); Mean Corpuscular Hemoglobin 28.3 pg (27.0-31.0); Mean Corpuscular Volume 83.6 fL (78.0-98.0); Mean Platelet Volume 8.8 fL (7.4-10.4); Platelet Count 235 10x3/uL (130-400); RBC Distribution Width 14.4 % (11.5-14.5)
[2024-06-09 06:23] LABS: Anion Gap 14 mmol/L (10-20); BUN (Urea Nitrogen) 14 mg/dL (8.4-25.7); Calc. Creatinine Clearance 110 mL/min (70-130); Calcium 8.7 mg/dL (7.8-10.44); Carbon Dioxide 25 mmol/L (23-31); Chloride 99 mmol/L (98-107); Estimated GFR 81; Glucose 131 mg/dL (83-110); Magnesium 1.7 mg/dL (1.6-2.6); Phosphorus 3.5 mg/dL (2.3-4.7); Potassium 3.7 mmol/L (3.5-5.1); Sodium 134 mmol/L (136-145)
[2024-06-09] MEDS: Vancomycin (BATCH) 1.75 GM in Premix 1 BAG IVPB SCH (09:00)
[2024-06-09] MEDS: Magnesium 2 GM/50 ML(in water) 2 GM in Premix 1 BAG IVPB SCH (09:00)
[2024-06-10 05:45] LABS: #Basophils 0.06 10x3/uL (0.0-0.2); %Basophils 0.6 % (0.0-1.0); %Eosinophils 1.8 % (0.0-10.0); %Lymphocytes 12.4 % (21.0-51.0); %Monocytes 14.3 % (0.0-10.0); %Neutrophils 70.4 % (42.0-75.0); Hematocrit 28.3 % (42.0-52.0); Hemoglobin 9.4 g/dL (14.0-18.0); Mean Corpuscular HGB CONC 33.2 g/dL (32.0-36.0); Mean Corpuscular Hemoglobin 28.5 pg (27.0-31.0); Mean Corpuscular Volume 85.8 fL (78.0-98.0); Mean Platelet Volume 9.3 fL (7.4-10.4); Platelet Count 234 10x3/uL (130-400); RBC Distribution Width 14.7 % (11.5-14.5)
[2024-06-10 06:31] LABS: Anion Gap 15 mmol/L (10-20); BUN (Urea Nitrogen) 19 mg/dL (8.4-25.7); Calc. Creatinine Clearance 114 mL/min (70-130); Calcium 8.4 mg/dL (7.8-10.44); Carbon Dioxide 25 mmol/L (23-31); Chloride 100 mmol/L (98-107); Estimated GFR 86; Glucose 98 mg/dL (83-110); Potassium 3.6 mmol/L (3.5-5.1); Sodium 136 mmol/L (136-145)
[2024-06-10 12:00] VITALS: BP 108/65; TEMP 97.7
== END 2024-06-10 16:15 | disposition swing bed (61) | DRG 25 ==
LOC: ERS 13:32 → 2SE 17:55 → OBSVTOIN 06-02 10:09 → CCU 06-03 12:49 → SURG A 06-08 10:46
PROVIDERS: ADMIT Internal Medicine; ATTEND Student in an Organized Health Care Education/Training Program
PROC: 009630Z Drainage of Cerebral Ventricle with Drainage Device, Percutaneous Approach (ICD-10-PCS; principal; 2024-06-03)
PROC: 00H032Z Insertion of Monitoring Device into Brain, Percutaneous Approach (ICD-10-PCS; 2024-06-03)
PROC: 00163J6 Bypass Cerebral Ventricle to Peritoneal Cavity with Synthetic Substitute, Percutaneous Approach (ICD-10-PCS; 2024-06-08)
DX: G91.1 Obstructive hydrocephalus (principal); G93.41 Metabolic encephalopathy; I61.5 Nontraumatic intracerebral hemorrhage, intraventricular; E87.1 Hypo-osmolality and hyponatremia; I69.351 Hemiplegia and hemiparesis following cerebral infarction affecting right dominant side; I10 Essential (primary) hypertension; I48.0 Paroxysmal atrial fibrillation; E78.5 Hyperlipidemia, unspecified; E03.9 Hypothyroidism, unspecified; L40.9 Psoriasis, unspecified; Z96.653 Presence of artificial knee joint, bilateral; G40.909 Epilepsy, unspecified, not intractable, without status epilepticus; M54.9 Dorsalgia, unspecified; G89.29 Other chronic pain; E87.6 Hypokalemia; Z79.01 Long term (current) use of anticoagulants
CPT/HCPCS: 36415; 70450; 70551; 80048; 83735; 84100; 85025; 93970; 99284; A4217; A6258; C1729; C1889; G0378; J0171; J0665; J1100; J2060; J2405; J2704; J3370; J3370-JW; J3475; J3480; J7030

== ENCOUNTER 2024-07-27 07:57 | Outpatient (CLI) | payer MEDICARE | END 2024-07-27 07:58 | disposition home or self-care (01) | LOC: CT 07:57 | PROVIDERS: ATTEND Registered Nurse | DX: R31.0 Gross hematuria (principal); I71.40 Abdominal aortic aneurysm, without rupture, unspecified; N28.1 Cyst of kidney, acquired; K80.20 Calculus of gallbladder without cholecystitis without obstruction; K57.30 Diverticulosis of large intestine without perforation or abscess without bleeding; I70.90 Unspecified atherosclerosis | CPT/HCPCS: 74176 ==

== ENCOUNTER 2025-03-23 13:37 | Outpatient (CLI) | payer MEDICARE ==
[2025-03-23 15:46] LABS: #Basophils 0.04 10x3/uL (0.0-0.2); #Eosinophils 0.12 10x3/uL (0.0-0.7); #Monocytes 1.34 10x3/uL (0.11-0.59); #Neutrophils 5.53 10x3/uL (1.40-6.50); %Basophils 0.5 % (0.0-1.0); %Eosinophils 1.4 % (0.0-10.0); %Lymphocytes 14.6 % (21.0-51.0); %Monocytes 16.1 % (0.0-10.0); %Neutrophils 66.6 % (42.0-75.0); Hematocrit 34.6 % (42.0-52.0); Hemoglobin 11.7 g/dL (14.0-18.0); Mean Corpuscular Hemoglobin 30.3 pg (27.0-31.0); Mean Corpuscular Volume 89.6 fL (78.0-98.0); Platelet Count 261 10x3/uL (130-400); Red Blood Cell (RBC) Count 3.86 mill/uL (4.70-6.10); White Blood Cell (WBC) Count 8.31 10x3/uL (4.8-10.8)
[2025-03-23 16:24] LABS: Bacteria/HPF None Seen HPF (None Seen); Glucose, Urine (Dipstick) Normal (Negative); Leukocyte Negative Leu/uL (Negative); Protein, Urine (Dipstick) Negative (Neg-Trace); RBC/HPF 0-3 HPF (0-3); Specific Gravity, Urine 1.012 (1.002-1.036); WBC/HPF 0-3 HPF (0-3)
[2025-03-23 16:37] LABS: Anion Gap 17 mmol/L (10-20); BUN (Urea Nitrogen) 26 mg/dL (8.4-25.7); Calc. Creatinine Clearance 0 mL/min (70-130); Calcium 9.0 mg/dL (7.8-10.44); Carbon Dioxide 21 mmol/L (23-31); Chloride 94 mmol/L (98-107); Glucose 87 mg/dL (83-110); Potassium 4.2 mmol/L (3.5-5.1); Sodium 128 mmol/L (136-145)
[2025-03-23 17:02] LABS: PTT 36.3 sec (22.9-36.1)
[2025-03-23 17:32] LABS: INR-International Normal Ratio 1.1; Prothrombin Time 14.4 sec (12.0-14.7)
== END 2025-03-23 13:38 | disposition home or self-care (01) ==
LOC: LABBT 13:37
PROVIDERS: ATTEND Urology
DX: Z01.818 Encounter for other preprocedural examination (principal); R31.0 Gross hematuria; I71.43 Infrarenal abdominal aortic aneurysm, without rupture; N28.89 Other specified disorders of kidney and ureter; I48.19 Other persistent atrial fibrillation; F10.21 Alcohol dependence, in remission; I61.9 Nontraumatic intracerebral hemorrhage, unspecified; R35.1 Nocturia; Z87.891 Personal history of nicotine dependence
CPT/HCPCS: 80048; 81001; 85025; 85610; 85730; 87086; 93005; 93010